=== PATIENT | male | born 1980 | race African-American/Black ===

== ENCOUNTER 2024-08-02 01:49 | Emergency (ER) | payer BC, SELFPAY | END 2024-08-02 02:25 | disposition home or self-care (01) | LOC: CSHERS 01:49 | DX: S02.5XXA Fracture of tooth (traumatic), initial encounter for closed fracture (principal); K02.9 Dental caries, unspecified; F17.210 Nicotine dependence, cigarettes, uncomplicated; X58.XXXA Exposure to other specified factors, initial encounter | CPT/HCPCS: 99283 ==